=== PATIENT | male | born 1940 | race Caucasian/White ===

== ENCOUNTER 2017-08-18 12:33 | Emergency (ER) | payer MEDICARE ==
[~2017-08-18] VITALS: Ht 175.3 cm; Wt 73.0 kg
[~2017-08-18 12:33] MED LIST: ASPIRIN81 M2 PO; Z.0.FENOFIBRATE160 M PO; Z.0.GLIMEPIRIDE4 MG PO; Z.0.LEVEMIR100 UNIT/ SQ; Z.0.METFORMIN HCL850 PO; Z.0.METOPROLOL TART2 PO; Z.0.MULTIVITAMINS1 E; Z.0.PRAVASTATIN SOD2 PO; Z.0.RAMIPRIL10 MG PO
[2017-08-18] MEDS: ACETAMINOPHEN 325 MG TAB PO ONE (13:15)
[2017-08-18] MEDS: DIPHTH/TETANUS/ACEL. PERTUSSIS 0.5 ML SYR IM ONE (13:44)
--- NOTE | 2017-08-18 14:03 | Diagnostic Imaging Report ---
Examination: CT BRAIN WITHOUT CONTRAST History:Fall. Head injury. Comparison studies:None Technique: Axial images were obtained from the skull base to the vertex. Coronal and sagittal images reconstructed from the axial data. Intravenous contrast: None Findings: Scalp: No abnormalities. Bones: No fractures, blastic or lytic lesions. Brain sulci: Appropriate for age. Ventricles: No hydrocephalus. Extra-axial space: No abnormalities. Parenchyma: A 9 mm dilated perivascular spaces seen along the inferior aspect of the right putamen. No masses, hemorrhage, or acute or chronic cortical based vascular insults. Sellar/suprasellar region: CSF filled sella. Craniocervical junction: Patent foramen magnum. No Chiari one malformation. Incidental findings: Atherosclerotic calcification of the cavernous and supraclinoid internal carotid and V4 segments of the bilateral vertebral arteries.. Impression: No acute intracranial abnormalities. Signed by: Dr. Nolvia Olivas M.D. on 08/18/2017 1:59 PM
--- NOTE | 2017-08-18 14:07 | Diagnostic Imaging Report ---
Examination: CT CERVICAL SPINE WITHOUT CONTRAST HISTORY:Neck pain. Fall. COMPARISON:None. TECHNIQUE: Multidetector helical axial images were obtained without contrast from the foramen magnum to T1. Coronal and sagittal reformatted images were done. Bone and soft tissue windows were evaluated. FINDINGS: Alignment:Normal alignment and lordosis. Vertebrae: Normal height and density. No acute fracture, infection or neoplasm. Spina bifida of C1. Disc space heights: Normal height. Caliber of spinal canal: Developmentally normal. Posterior fossa and craniocervical junction: Foramen magnum patent. No Chiari 1 malformation. Soft tissues: No abnormality. Degenerative changes: Diffuse disc osteophyte complex at C3-C4 and C5-C6 with moderate left foraminal narrowing at C3-C4. Asymmetric to the right disc osteophyte complex at C6-C7 with severe right neural foraminal narrowing. No canal stenosis. Visualized lung apices: Paraseptal emphysematous change with biapical pleural thickening. IMPRESSION: 1. No acute abnormalities. 2. Mild degenerative changes, as above. Signed by: Dr. Nolvia Olivas M.D. on 08/18/2017 2:04 PM
[2017-08-18 14:26] VITALS: BP 159/83
== END 2017-08-18 14:43 | disposition home or self-care (01) ==
LOC: ER 12:37
DX: S06.0X0A Concussion without loss of consciousness, initial encounter (principal); S08.0XXA Avulsion of scalp, initial encounter; S50.11XA Contusion of right forearm, initial encounter; W01.0XXA Fall on same level from slipping, tripping and stumbling without subsequent striking against object, initial encounter; Y92.009 Unspecified place in unspecified non-institutional (private) residence as the place of occurrence of the external cause; Z23 Encounter for immunization
CPT/HCPCS: 70450; 72125; 99283

== ENCOUNTER 2021-04-01 20:38 | Emergency (ER) | payer MEDICARE ==
[~2021-04-01] VITALS: Ht 175.3 cm; Wt 73.0 kg
[2021-04-01] MEDS ORDERED: RAMIPRIL 5 MG CAP PO ONE (21:00)
[2021-04-01] MEDS ORDERED: MECLIZINE HCL 12.5 MG TAB PO ONE (21:00)
[2021-04-01 21:13] LABS: BASOPHILS % 0.2 % (0.0-1.0); EOSINOPHILS # (AUTO) 0.2 (0.0-0.4); EOSINOPHILS % 4.1 % (0.0-6.0); HEMATOCRIT 39.6 % (38.2-49.6); HEMOGLOBIN 13.6 g/dL (14.0-18.0); MEAN CORPUSCULAR HGB CONC 34.3 g/dL (31-35); MEAN CORPUSCULAR VOLUME 90.2 fL (81-99); MONOCYTES # (AUTO) 0.4 (0.2-0.8); MONOCYTES % 8.5 % (4.4-11.3); NEUTROPHILS % 65.5 % (38.7-80.0); PLATELET COUNT 153 x10e3/uL (140-360); RED BLOOD COUNT 4.39 x10e6/uL (4.3-5.7)
[2021-04-01 21:30] LABS: ALBUMIN 4.1 g/dL (3.5-5.0); ALBUMIN/GLOBULIN RATIO 1.2 (0.8-2.0); ANION GAP 15.8 mmol/L (8-16); CALCIUM 9.6 mg/dL (8.4-10.2); CREATININE, SERUM 0.93 mg/dL (0.72-1.25); POTASSIUM 3.8 mmol/L (3.5-5.1)
[2021-04-01 21:54] LABS: CREATINE KINASE MB 6.6 ng/mL (0-5.0)
== END 2021-04-01 22:09 | disposition home or self-care (01) ==
LOC: ER 20:49
DX: R42 Dizziness and giddiness (principal); I10 Essential (primary) hypertension; E11.9 Type 2 diabetes mellitus without complications; R94.31 Abnormal electrocardiogram [ECG] [EKG]; Z79.899 Other long term (current) drug therapy; Z85.038 Personal history of other malignant neoplasm of large intestine; Z95.5 Presence of coronary angioplasty implant and graft
CPT/HCPCS: 36415; 70450; 80053; 82550; 82553; 84484; 85025; 93005; 99283; J8597